=== PATIENT | female | born 1935 | race Caucasian/White ===

== ENCOUNTER → 2017-11-11 08:37 | Outpatient (CLI) | payer MEDICARE ==
[~2017-11-11] VITALS: Ht 152.4 cm; Wt 84.1 kg
[~2017-11-11 08:37] MED LIST: BAYER CHEWABLE81 MG PO; BUMETANIDE0.5 MG; BUMEX 1 MG TAB1 MG PO; BUSPAR10 MG PO; CELEXA20 MG PO; COLACE100 MG PO; COREG6.25 MG PO; FERRETTS324 MG PO; GLIMEPIRIDE2 MG PO; HYDRALAZINE HCL25 MG PO; LIPITOR40 MG PO; LISINOPRIL5 MG PO; MAG-OX 400 MG400 MG PO; PRILOSEC10 M1 PO; RISPERDAL0.25 MG PO; RISPERDAL2 MG PO; TOPROL XL25 MG PO; ULTRAM50 MG; VITAMIN B-121000 MCG PO; VITAMIN D250000 UNIT PO; VITAMIN D31000 UNIT PO; VITAMIN E1000 UNI1 PO
[2017-11-11 09:18] VITALS: BP 173/59; Ht 152.4 cm; Wt 84.1 kg
== END | disposition home or self-care (01) ==
LOC: D.OPS 08:37
DX: D50.8 Other iron deficiency anemias (principal)

== ENCOUNTER 2017-12-16 12:05 | Outpatient (CLI) | payer MEDICARE ==
[~2017-12-16] VITALS: Ht 152.4 cm; Wt 72.3 kg
[2017-12-16 13:42] VITALS: BP 160/48; Ht 152.4 cm; Wt 72.3 kg
== END 2017-12-16 18:15 ==
LOC: D.OPS 12:05
DX: D50.8 Other iron deficiency anemias (principal)

== ENCOUNTER 2018-01-06 08:32 | Outpatient (CLI) | payer MEDICARE ==
[2018-01-06 09:00] VITALS: BP 190/69
== END 2018-01-06 14:45 ==
LOC: D.OPS 08:32
DX: D64.9 Anemia, unspecified (principal)